=== PATIENT | female | born 1995 | race African-American/Black ===

== ENCOUNTER 2016-12-25 19:06 | Emergency (ER) | payer OTHER ==
[~2016-12-25] VITALS: Ht 157.5 cm; Wt 70.8 kg
[2016-12-25 19:12] VITALS: BP 123/83
[2016-12-25] MEDS ORDERED: LR 1000ml 1,000 ML IV STA (19:21)
--- NOTE | 2016-12-25 19:26 | Emergency Room Report ---
History of Present Illness General Chief Complaint: Generalized Weakness Source: Patient, Significant Other, EMS Present Illness HPI 21 YO F with known SCD presents with 1 week of generalized weakness and "pain everywhere." Taking hydroxyurea, folate at home, T#3 as needed for pain. Denies chest pain, SOB, fever/chills, urinary complaints, hematuria, vaginal bleeding. Fiance is "getting over a cold." Denies ever having received blood transfusion. Does not know baseline Hb/Hct. Allergies: Coded Allergies: No Known Allergies (Unverified , 12/25/16) Patient History Past Medical History: other - SCD Past Surgical History: none Pertinent Family History: none Social History: Denies: alcohol use, drug use, smoking Last Menstrual Period: Nov Now: No Immunizations: UTD Reviewed Nursing Documentation: PMH: Agreed, PSxH: Agreed Review of Systems All Other Systems: negative except mentioned in HPI Physical Exam Vital Signs Date Time Temp Pulse Resp B/P Pulse Ox O2 Delivery O2 Flow Rate FiO2 12/25/16 19:08 98.4 66 18 123/52 96 Room Air Sp02 EP Interpretation: reviewed, normal General Appearance: normal inspection, well appearing, no apparent distress, alert, GCS 15, non-toxic Head: normocephalic, atraumatic Eyes: bilateral eye EOMI, bilateral eye PERRL ENT: normal ENT inspection, hearing grossly normal, normal voice Neck: normal inspection, full range of motion, supple, no bony tend Respiratory: normal inspection, lungs clear, normal breath sounds, no respiratory distress, no retraction, no wheezing Cardiovascular #1: regular rate, rhythm, no edema Gastrointestinal: normal inspection, normal bowel sounds, non tender, soft, no guarding, no hernia Genitourinary: no CVA tenderness Musculoskeletal: normal inspection, back normal, normal range of motion, Elyse' s Sign negative Neurologic: normal inspection, alert, oriented x3, responsive, dental financial coordinator III-XII nml as tested, motor strength/tone normal, speech normal Psychiatric: normal inspection, judgement/insight normal, mood/affect normal Skin: normal inspection, normal color, no rash Lymphatic: normal inspection Medical Decision Making Diagnostic Impression: Primary Impression: Episode of generalized weakness ER Course 21 YO F with SCD with 1 week of weakness. VSS. Afebrile. Low suspicion for acute chest syndrome given no corazon chest pain, SOB, fever/ chills PLAN: Check CBC, Retic count, CXR, analgesia, IVF hydration, reassess Chest X-Ray Diagnostic Results EP Interpretation: Yes Findings: no consolidation, no effusion, no pneumothorax, no acute cardiopulmonary disease Number of Views: 1 Reevaluation Time: 20:40 Last Vital Signs Date Time Temp Pulse Resp B/P Pulse Ox O2 Delivery O2 Flow Rate FiO2 12/25/16 19:08 98.4 66 18 123/52 96 Room Air Status: improved Reevaluation Impression Labs: H&H stable. No leuks. LDH normal. UA negative for infection CXR: No infiltate, PNA, PTX Feels better after IVF hydration, analgesia Patient endorses not eating well, not exercising. Encouraged better habits at home and PMD followup Disposition: HOME, SELF-CARE HILLARY GALLEGOS M.D. Dec 25, 2016 19:26
[2016-12-25] MEDS ORDERED: Morphine Sulfate 2mg/ml Inj IVP ONE (19:30)
[2016-12-25 20:11] LABS: EOSINOPHILS % (AUTO) 0.6 % (0.0-3.0); LYMPHOCYTES % (AUTO) 36.3 % (20.0-45.0); MEAN CORPUSCULAR HEMOGLOBIN 27.1 PG (27.0-31.0); MEAN CORPUSCULAR HGB CONC 33.1 G/DL (32.0-36.0); MEAN CORPUSCULAR VOLUME 82 FL (80-99); MONOCYTES % (AUTO) 6.1 % (1.0-10.0); PLATELET COUNT 147 K/UL (150-450); RED BLOOD COUNT 4.01 M/UL (4.20-5.40); RED CELL DISTRIBUTION WIDTH 14.2 % (11.6-14.8); WHITE BLOOD COUNT 8.8 K/UL (4.8-10.8)
[2016-12-25 20:16] LABS: APPEARANCE,URINE CLEAR; KETONES,URINE 2+ (NEGATIVE); LEUKOCYTE ESTERASE ,URINE NEGATIVE (NEGATIVE); NITRITE,URINE NEGATIVE (NEGATIVE); PH,URINE 6 (4.5-8.0); PROTEIN,URINE 1+ (NEGATIVE); UROBILINOGEN,URINE NORMAL MG/DL (0.0-1.0)
[2016-12-25 20:21] LABS: INR 1.1 (0.9-1.1); PROTHROMBIN TIME 10.7 SEC (9.30-11.50)
[2016-12-25 20:25] LABS: RBC,URINE 0-2 /HPF (0 - 2); SQUAMOUS EPITHELIAL CELL,UR OCCASIONAL /LPF (NONE/OCC); WBC,URINE 0-2 /HPF (0 - 2)
[2016-12-25 20:28] LABS: ALANINE AMINOTRANSFERASE 13 U/L (3-33); ALBUMIN/GLOBULIN RATIO 1.5 (1.0-2.7); ANION GAP 15 (5-15); ASPARTATE AMINO TRANSFERASE 32 U/L (5-40); CALCIUM 9.1 mg/dL (8.6-10.2); CARBON DIOXIDE 22 mEQ/L (20-30); CHLORIDE 103 mEQ/L (98-107); CREATININE 0.7 mg/dL (0.5-0.9); GLOMERULAR FILTRATION RATE > 60 mL/min (>60); HEMOLYSIS 0; SODIUM 140 mEQ/L (135-145); TOTAL PROTEIN 6.7 g/dL (6.6-8.7)
[2016-12-25 20:57] VITALS: BP 123/83
[2016-12-25 21:28] LABS: RETICULOCYTE COUNT 0.4 % (0.0-2.0)
--- NOTE | 2016-12-26 11:02 | Diagnostic Imaging Report ---
Indication: Chest pain Technique: One view of the chest Comparison: none Findings: Lungs and pleural spaces are clear. Heart size is normal. Impression: No acute process
== END 2016-12-25 20:59 | disposition home or self-care (01) ==
LOC: EDBD 19:06 → EMR 19:15
DX: R53.1 Weakness (principal); R52 Pain, unspecified; D57.1 Sickle-cell disease without crisis; F17.200 Nicotine dependence, unspecified, uncomplicated
CPT/HCPCS: 36415; 71010; 80053; 81003; 81025; 83615; 85025; 85044; 85610; 85730; 86850; 86900; 86901; 96374; 96375; 99284; J2270; J7120